=== PATIENT | male | born 1990 | race Caucasian/White ===

== ENCOUNTER 2019-05-05 12:03 | Emergency (ER) | payer OTHER ==
[2019-05-05 12:11] VITALS: BP 137/82
[2019-05-05] MEDS ORDERED: DEXAMETHASONE 10 MG/ML VIAL PO STA (12:28)
[2019-05-05] MEDS ORDERED: PSEUDOEPHEDRINE 30 MG TABLET PO STA (12:28)
[2019-05-05] MEDS ORDERED: CHERRY SYRUP 10 ML UDC PO ONE (12:28)
[2019-05-05] MEDS ORDERED: IBUPROFEN 800 MG TABLET PO STA (12:29)
--- NOTE | 2019-05-05 12:31 | ED Physician Documentation ---
PD HPI URI - Stated complaint Stated Complaint: HEADACHE - Chief complaint Chief Complaint: Fever - History obtained from History obtained from: Patient - History of Present Illness Timing - onset: How many days ago (2) Timing duration: Days (2) Timing details: Gradual onset Pain level max: 6 Pain level now: 6 Associated symptoms: Fever (last week, none now), Nasal congestion, Sinus pain (R sinus pain). No: Ear pain, Sore throat, Dry cough Contributing factors: Sick contact Improves by: Rest Worsened by: Activity, Other (leaning forward) Recently seen: Not recently seen Review of Systems Nose: reports: Congestion, Sinus pressure / pain GI: denies: Abdominal Pain, Vomiting, Diarrhea Skin: denies: Rash PD PAST MEDICAL HISTORY - Past Medical History Past Medical History: No Cardiovascular: None Respiratory: None Neuro: None Endocrine/Autoimmune: None GI: None : None HEENT: None Psych: None Musculoskeletal: None Derm: None - Past Surgical History Past Surgical History: No - Present Medications Home Medications: Ambulatory Orders Medication Instructions Recorded Confirmed Amox/Clav 875/125 [Augmentin] 1 each PO Q12H #20 tablet 05/05/19 Cetirizine HCl/Pseudoephedrine 1 each PO BID PRN #30 tab.er.12h 05/05/19 [Zyrtec-D Tablet] Fluticasone [Flonase] 1 sprays LITO BID PRN #1 bottle 05/05/19 - Allergies Allergies/Adverse Reactions: Allergies Allergy/AdvReac Type Severity Reaction Status Date / Time No Known Drug Allergies Allergy Verified 05/05/19 12:07 - Social History Does the pt smoke?: No Smoking Status: Never smoker Does the pt drink ETOH?: Yes Does the pt have substance abuse?: No - Immunizations Immunizations are current?: Yes - POLST Patient has POLST: No PD ED PE NORMAL - Vitals Vital signs reviewed: Yes - General General: Alert and oriented X 3, No acute distress, Well developed/nourished - HEENT HEENT: PERRL, Ears normal, Moist mucous membranes, Pharynx benign, Other (TTP R frontal and maxillary sinus) - Neck Neck: Supple, no meningeal sign, No adenopathy - Cardiac Cardiac: RRR - Respiratory Respiratory: No respiratory distress, Clear bilaterally - Abdomen Abdomen: Soft, Non tender, Non distended - Derm Derm: Warm and dry, No rash - Neuro Neuro: Alert and oriented X 3 - Psych Psych: Normal mood, Normal affect Results - Vitals Vitals: Vital Signs - 24 hr 05/05/19 12:07 Temperature 37 C Heart Rate 71 Respiratory 15 Rate Blood Pressure 137/82 H O2 Saturation 97 Oxygen O2 Source Room air PD MEDICAL DECISION MAKING - ED course Complexity details: considered differential, d/w patient ED course: Patient appears to have sinusitis. No fevers. Will try decongestants and intranasal steroids first. If he is not improving, he can start the Augmentin. He is well-appearing, nontoxic. Afebrile. Had been sick last week, sinus pressure started yesterday. Patient counseled regarding signs and symptoms for which I believe and urgent re-evaluation would be necessary. Patient with good understanding of and agreement to plan and is comfortable going home at this time This document was made in part using voice recognition software. While efforts are made to proofread this document, sound alike and grammatical errors may occur. Departure - Departure Disposition: 01 Home, Self Care Clinical Impression: Sinusitis Qualifiers: Sinusitis location: unspecified location Chronicity: acute Recurrence: non- recurrent Qualified Code(s): J01.90 - Acute sinusitis, unspecified Condition: Good Instructions: ED Sinusitis Abx Tx Follow-Up: your,doctor in 1 week if not better [Other] Prescriptions: Amox/Clav 875/125 [Augmentin] 1 each PO Q12H #20 tablet Cetirizine HCl/Pseudoephedrine [Zyrtec-D Tablet] 1 each PO BID PRN #30 tab.er.12h PRN Reason: nasal congestion Fluticasone [Flonase] 1 sprays LITO BID PRN #1 bottle PRN Reason: Nasal Congestion Comments: Return if you worsen. Follow-up with your doctor for further care. I would start with the decongestants and steroids, if you are not improving in 1 to 2 days, you can start the antibiotic.
== END 2019-05-05 12:47 | disposition home or self-care (01) ==
LOC: ED 12:03
DX: J01.10 Acute frontal sinusitis, unspecified (principal); J01.00 Acute maxillary sinusitis, unspecified
CPT/HCPCS: 99283; 99284; A9270